=== PATIENT | male | born 1980 | race Caucasian/White ===

== ENCOUNTER 2016-06-19 06:48 | Emergency (ER) | payer SELFPAY ==
[2016-06-19] MEDS ORDERED: KETOROLAC TROMETHAMINE INJ 60 MG/2 ML VIAL IM ONE (07:06)
[2016-06-19 07:08] VITALS: BP 145/93; TEMP 97.6; O2SAT 96
--- NOTE | 2016-06-19 07:16 | ED.PDOC ---
History of Present Illness - General Chief Complaint: Neck Injury/Pain Stated Complaint: R sided neck pain X1 week Time Seen by Provider: 06/19/16 07:05 Source: patient, RN notes reviewed, Vital Signs reviewed Exam Limitations: no limitations - History of Present Illness Initial Comments: Patient started with R sided neck pain 1 week ago that is not improving with conservative treatment. He has been using heat, ibuprofen and massage and his neck is just getting tighter and tighter. Timing/Duration: 1 week Severity: moderate Improving Factors: nothing Worsening Factors: movement Associated Symptoms: headaches Allergies/Adverse Reactions: Allergies NO KNOWN ALLERGY Allergy (Verified 11/28/13 13:50) Home Medications: Ambulatory Orders Cyclobenzaprine HCl [Flexeril] 5 mg PO TID PRN #9 tab 03/09/15 Ibuprofen [Motrin Tab] 600 mg PO Q8H PRN #15 tab 03/09/15 Cephalexin [Keflex] 500 mg PO QID #28 cap 08/16/15 Cyclobenzaprine HCl [Flexeril] 5 mg PO Q8HRS PRN #15 tab 06/19/16 Review of Systems - Review of Systems Constitutional: States: no symptoms reported EENTM: States: no symptoms reported Respiratory: States: no symptoms reported Cardiology: States: no symptoms reported Musculoskeletal: States: see HPI Skin: States: no symptoms reported Neurological: States: headache. Denies: numbness, paresthesia, tingling, weakness Past Medical History (General) - Patient Medical History Hx Seizures: No Hx Stroke: No Hx Dementia: No Hx Asthma: No Hx of COPD: No Hx Cardiac Disorders: No Hx Congestive Heart Failure: No Hx Pacemaker: No Hx Hypertension: No Hx Thyroid Disease: No Hx Diabetes: No Hx Gastroesophageal Reflux: No Hx Renal Disease: No Hx Cancer: No Hx of HIV: No Hx Hepatitis C: No Hx MRSA: No - Vaccination History Hx Tetanus, Diphtheria Vaccination: Yes Hx Influenza Vaccination: No Hx Pneumococcal Vaccination: No - Social History Hx Tobacco Use: No Hx Chewing Tobacco Use: No Hx Alcohol Use: No Hx Substance Use: No Hx Substance Use Treatment: No Hx Depression: No Hx Physical Abuse: No Hx Emotional Abuse: No Hx Suspected Abuse: No - Female History Patient : No Family Medical History - Family History Father Family History: No Known Living Status: Still Living Physical Exam - Physical Exam General Appearance: Alert, No apparent distress, Well Developed, Well Groomed, Well Hydrated, Well Nourished, Other - uncomfortable Ears, Nose, Throat: hearing grossly normal Neck: limited range of motion - due to R sided muscle spasm and pain, tender lateral - Right Respiratory: chest non-tender, lungs clear, normal breath sounds, no respiratory distress, no accessory muscle use Cardiovascular/Chest: regular rate, rhythm, no gallop, no JVD, no murmur Extremity: normal range of motion, non-tender, normal inspection Neurologic: no motor/sensory deficits, alert, normal mood/affect, oriented x 3 Skin Exam: normal color, warm/dry Departure - Departure Clinical Impression: Muscle spasms of neck Cervical muscle strain Qualifiers: Encounter type: initial encounter Qualified Code(s): S16.1XXA - Strain of muscle, fascia and tendon at neck level, initial encounter Time of Disposition: 07:18 Disposition: Discharge to Home or Self Care Condition: Good Departure Forms: ED Discharge - Pt. Copy, Patient Portal Self Enrollment, Work Release Form Instructions: DI for Cervical Muscle Strain Diet: resume usual diet Activity: increase activity as tolerated Referrals: Neto Vegas MD [Primary Care Provider] - 1-5 Days Prescriptions: Cyclobenzaprine HCl [Flexeril] 5 mg PO Q8HRS PRN #15 tab PRN Reason: Muscle Spasms Home Medications: Ambulatory Orders Cyclobenzaprine HCl [Flexeril] 5 mg PO TID PRN #9 tab 03/09/15 Ibuprofen [Motrin Tab] 600 mg PO Q8H PRN #15 tab 03/09/15 Cephalexin [Keflex] 500 mg PO QID #28 cap 08/16/15 Cyclobenzaprine HCl [Flexeril] 5 mg PO Q8HRS PRN #15 tab 06/19/16 Additional Instructions: Continue heat, massage and ibuprofen 800mgg every 8 hours
== END 2016-06-19 07:33 | disposition home or self-care (01) ==
LOC: ER 06:48
DX: S16.1XXA Strain of muscle, fascia and tendon at neck level, initial encounter (principal); X58.XXXA Exposure to other specified factors, initial encounter; Z79.899 Other long term (current) drug therapy